=== PATIENT | male | born 1995 | race Caucasian/White ===

== ENCOUNTER 2020-03-14 13:52 | Emergency (ER) | payer OTHER ==
[~2020-03-14] VITALS: Ht 185.4 cm; Wt 77.1 kg
[2020-03-14] MEDS ORDERED: IBUPROFEN 600600 M1 PO (15:14)
[2020-03-14 15:33] VITALS: BP 132/79
== END 2020-03-14 15:34 | disposition home or self-care (01) ==
LOC: M.ERS 13:52
DX: S62.327A Displaced fracture of shaft of fifth metacarpal bone, left hand, initial encounter for closed fracture (principal); W22.8XXA Striking against or struck by other objects, initial encounter; Y93.89 Activity, other specified; Y92.89 Other specified places as the place of occurrence of the external cause; Y99.8 Other external cause status